=== PATIENT | male | born 1970 | race Caucasian/White ===

== ENCOUNTER 2018-03-13 16:10 | Outpatient (REF) | payer BC, SELFPAY ==
[2018-03-13 20:29] LABS: Anion Gap 6.3 mmol/L (3-11); BUN 12 mg/dL (7-18); CO2 31.7 mmol/L (21.0-32.0); CREATININE 0.89 mg/dL (0.70-1.30); Calcium 9.5 mg/dL (8.5-10.1); Chloride 101 mmol/L (98-107); Glucose 99 mg/dL (70-100); Potassium 4.2 mmol/L (3.5-5.1); Sodium 139 mmol/L (136-145)
[2018-03-13 21:41] LABS: Hemoglobin A1C 5.6 % (4.5-6.2)
== END 2018-03-13 16:30 ==
LOC: NCHCN 16:10
PROVIDERS: PCP Physician Assistant Medical; Visit Provider Physician Assistant Medical
DX: I10 Essential (primary) hypertension (principal)
CPT/HCPCS: 80048; 83036

== ENCOUNTER 2019-03-26 17:49 | Outpatient (REF) | payer BC, SELFPAY ==
[2019-03-26 21:54] LABS: Anion Gap 10.3 mmol/L (3-11); BUN 12 mg/dL (7-18); CO2 28.7 mmol/L (21.0-32.0); CREATININE 0.95 mg/dL (0.70-1.30); Calcium 9.3 mg/dL (8.5-10.1); Calculated LDL 73 mg/dL; Chloride 103 mmol/L (98-107); Cholesterol 115 mg/dL (50-200); Glucose 102 mg/dL (70-100); HDL Cholesterol 35 mg/dL (40-60); Potassium 3.8 mmol/L (3.5-5.1); Sodium 142 mmol/L (136-145); Triglyceride 36 mg/dL (30-150)
== END 2019-03-26 18:09 ==
LOC: NCHCO 17:49
PROVIDERS: PCP Physician Assistant Medical; Visit Provider Physician Assistant Medical
DX: I10 Essential (primary) hypertension (principal)
CPT/HCPCS: 80048; 80061

== ENCOUNTER 2019-06-25 21:49 | Outpatient (REF) | payer BC, SELFPAY ==
[2019-06-25 22:06] LABS: ALT 37 U/L (16-63); AST 36 U/L (15-37); Albumin 3.9 g/dL (3.4-5.0); Alkaline Phosphatase 81 U/L (46-116); Anion Gap 10.9 mmol/L (3-11); BUN 11 mg/dL (7-18); Bilirubin, Total 0.3 mg/dL (0.2-1.0); CO2 26.1 mmol/L (21.0-32.0); CREATININE 0.89 mg/dL (0.70-1.30); Calcium 8.7 mg/dL (8.5-10.1); Chloride 105 mmol/L (98-107); Glucose 97 mg/dL (74-106); Potassium 3.8 mmol/L (3.5-5.1); Sodium 142 mmol/L (136-145); Total Protein 6.6 g/dL (6.4-8.2)
== END 2019-06-25 22:09 ==
LOC: NCHCN 21:49
PROVIDERS: PCP Physician Assistant Medical; Visit Provider Physician Assistant Medical
DX: I10 Essential (primary) hypertension (principal)
CPT/HCPCS: 80053

== ENCOUNTER 2019-12-24 14:25 | Emergency (ER) | payer SELFPAY ==
[2019-12-24 14:32] VITALS: BP 137/88; PULSE 67; TEMP 36.7; O2SAT 98
--- NOTE | 2019-12-24 15:06 | W.ED.GENAD ---
Discharge Plan Disposition Patient Disposition: HOME Condition: Stable Discharge Details Chief Complaint: EyeProblem Clinical Impression: Subconjunctival hemorrhage of right eye Primary Care Provider: Timi Hendricks ED Provider: Yenni Borden Home Meds and New Rx's Prescriptions: No Action losartan 25 mg tablet 25 mg PO DAILY RF: 0 Discharge Instructions Instructions: Subconjunctival Hemorrhage (ED) Additional Instructions: Follow-up with [facility] eye care if needed in 1 to 2 weeks. Subconjunctival hemorrhages should resolve on their own within 1 to 2 weeks. Return to the ED or be seen sooner for any vision changes, increasing eye pain, or worsening drainage. Apply cold compresses you may need artificial tears to keep eye moist. Follow up with primary care provider in 3-5 days. Return to ED sooner if any worsening or concerns. Increase oral fluids. [address] [place] [address] ? 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 He had increased tearing. He denies having any foreign body sensation or scratching his eye or any eye trauma. He then noticed that he had some bleeding noted to the conjunctive of his eye. He has no visual changes, no blurry vision no headache no ear pain he is not on any blood thinners. He does have a history of high blood pressure and is on losartan. Blood pressure here is within normal limits 137/88. He has just increased tearing no serosanguineous drainage or signs of globe rupture at this time. Visual acuity within normal limits please see RN chart Patient instructed to follow-up with [facility] discuss strict return instructions, verbalized understanding. HPI General Mode of arrival: ambulatory. Date/Time Provider Initiated Documentation: 12/24/19 14:39. Limitations to Documentation: no limitations. Information obtained by: patient. 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 He had increased tearing. He denies having any foreign body sensation or scratching his eye or any eye trauma. He then noticed that he had some bleeding noted to the conjunctive of his eye. He has no visual changes, no blurry vision no headache no ear pain he is not on any blood thinners. He does have a history of high blood pressure and is on losartan. Blood pressure here is within normal limits 137/88. He has just increased tearing no serosanguineous drainage or signs of globe rupture at this time. Related Data Home Medications Medication Instructions Recorded Confirmed losartan 25 mg PO DAILY 12/24/19 12/24/19 Allergies Allergy/AdvReac Type Severity Reaction Status Date / Time No Known Allergies Allergy Unverified 12/24/19 14:35 General Stated Complaint: EyeProblem JORDIN: 4 Review of Systems Narrative: Constitutional: Negative for weight loss, alert and oriented, well groomed, normal body habitus, appears comfortable. HEENT: Denies trauma, headaches, blurry vision, nasal discharge, sore throat, trouble swallowing. Reports subconjunctival painless right-sided lateral hemorrhage. Chest: Denies chest pain, palpitations, irregular rhythm, hypertension. Neuro: Denies dizziness, blurry vision, weakness, syncope, headache or facial numbness. Hematologic: Denies easy bruising, intolerance to heat or cold, hair loss. [facility] Social History Smoking/Tobacco Use Status: Never Alcohol Intake: never Drug use: Never Substance use type: does not use Do you feel safe at home: Yes Do you feel safe in your relationship?: Yes Exam Narrative Exam Narrative: Constitutional: Alert and oriented x3. Appears stated age. Normal body habitus. Head: Normocephalic, no trauma. Eyes: Pupils PERRLA, Red reflex noted, EOM's intact. Eyelids symmetrical without lesions, discharge, or swelling. Does have mild conjunctival swelling to the right lateral eyeball, please see eye exam as noted below. ENT: Bilateral TM's WNL, External ear normal to inspection, no mastoid TTP, swelling, or erythema, Nasal turbinates WNL, no nasal discharge. Normal dentition, Posterior pharynx WNL, no exudate. Neurologic: Cranial nerves II-XII intact. Alert and oriented x 3. DTR's intact. Eyes Alignment and Position: alignment normal Periorbital: periorbital findings normal Eyelids: eyelids normal Conjunctivae: conjunctival abnormality right subconjunctival hemorrhage Pupils: PERRL, normal by confrontation and accommodation normal EOM: EOM intact bilaterally Direct ophthalmoscopy: normal light reflex Eyes/upper lids images: 1. Subconjunctival hemorrhage Course Vital Signs Vital signs: Vital Signs Temperature 36.7 C 12/24/19 14:32 Pulse 67 12/24/19 14:32 Blood Pressure 137/88 12/24/19 14:32 Pulse Oximetry 98 12/24/19 14:32 Temperature 36.7 C 12/24/19 14:32 Temperature Source Temporal Artery Scan 12/24/19 14:32 Pulse 67 12/24/19 14:32 Respiratory Effort Non-Labored 12/24/19 14:34 Blood Pressure 137/88 12/24/19 14:32 Blood Pressure Position Sitting 12/24/19 14:32 Pulse Oximetry 98 12/24/19 14:32 Oxygen Delivery Method Room Air 12/24/19 14:32 Oxygen Flow Rate 0 12/24/19 14:32
--- NOTE | 2019-12-25 10:02 | NUR.NOTE ---
Nursing Note: Patient called requesting a work note to return to work today. 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 Dr. Velarde did a handwritten work note. This was emailed through the fax machine to [email or web address]. Shraddha Singleton Cell # [phone].
== END 2019-12-24 15:08 | disposition home or self-care (01) ==
PROVIDERS: Emergency Provider Registered Nurse Emergency; PCP Physician Assistant Medical
DX: H11.31 Conjunctival hemorrhage, right eye (principal)
CPT/HCPCS: 99282; 99283

== ENCOUNTER 2020-06-23 19:18 | Outpatient (REF) | payer BC, SELFPAY ==
[2020-06-23 21:59] LABS: Hemoglobin A1C 5.5 % (<5.7)
[2020-06-23 22:03] LABS: ALT 40 U/L (16-63); AST 35 U/L (15-37); Albumin 4.3 g/dL (3.4-5.0); Alkaline Phosphatase 83 U/L (46-116); Anion Gap 10.4 mmol/L (3-11); BUN 12 mg/dL (7-18); Bilirubin, Total 0.5 mg/dL (0.2-1.0); CO2 25.6 mmol/L (21.0-32.0); Calcium 9.4 mg/dL (8.5-10.1); Calculated LDL 78 mg/dL (<100); Chloride 103 mmol/L (98-107); Cholesterol 129 mg/dL (<200); Glucose 92 mg/dL (74-106); HDL Cholesterol 44 mg/dL (40-60); Potassium 3.7 mmol/L (3.5-5.1); Sodium 139 mmol/L (136-145); Total Protein 7.1 g/dL (6.4-8.2); Triglyceride 37 mg/dL (<150)
== END 2020-06-23 19:19 | disposition home or self-care (01) ==
LOC: NCHCN 19:18
PROVIDERS: PCP Physician Assistant Medical; Visit Provider Physician Assistant Medical
DX: I10 Essential (primary) hypertension (principal); R73.03 Prediabetes
CPT/HCPCS: 80053; 80061; 83036

== ENCOUNTER 2022-07-12 15:54 | Outpatient (REF) | payer BC, SELFPAY ==
[2022-07-12 20:19] LABS: Anion Gap 10.8 mmol/L (3-11); BUN 14 mg/dL (7-18); CO2 25.2 mmol/L (21.0-32.0); CREATININE 0.9 mg/dL (0.70-1.30); Calcium 9.1 mg/dL (8.5-10.1); Calculated LDL 72 mg/dL (<100); Chloride 107 mmol/L (98-107); Cholesterol 129 mg/dL (<200); Estimated GFR 101.49 (mL/min/1.73m2); Glucose 90 mg/dL (74-106); HDL Cholesterol 48 mg/dL (40-60); Potassium 3.7 mmol/L (3.5-5.1); Sodium 143 mmol/L (136-145); Triglyceride 47 mg/dL (<150)
== END 2022-07-12 15:55 | disposition home or self-care (01) ==
LOC: NCHCN 15:54
PROVIDERS: PCP Physician Assistant Medical; Visit Provider Physician Assistant Medical
DX: I10 Essential (primary) hypertension (principal)
CPT/HCPCS: 80048; 80061

== ENCOUNTER 2023-05-29 05:03 | Outpatient (CLI) | payer OTHER, SELFPAY ==
--- OUTSIDE RECORDS SUMMARY | 2023-05-29 05:05 | XMS_ITS | Continuity of Care Document ---
Author Name Unknown Organization [facility] Address [address] [place] [id number] Care Team Providers Care Preflight Inspector Name Role Phone BEN FITZGERALD PA-C Primary Care Brandenrayo morfin Encounter [facility]TT[facility] FIN NBR [id number] Date(s): 04/19/23 - 04/19/[address] [id number] Encounter Diagnosis Pneumonia(Discharge Diagnosis) - 04/19/23 Discharge Disposition: Home or Self Care Attending Physician: Duncan Mendoza MD Admitting Physician: Duncan Mendoza MD Allergies, Adverse Reactions, Alerts No Known Allergies Medications Albuterol (Eqv-Proventil HFA) 90 mcg/inh inhalation aerosol INHALE 2 PUFFS BY MOUTH EVERY 4 TO 6 HOURS NEEDED Start Date: 04/19/23 Status: Ordered amoxicillin-clavulanate 875 mg-125 mg oral tablet 1 tab, Oral, every 12 hr, X 10 days, # 20 tab, 0 Refill(s), 04/29/23 6:00:00 AM [employer] Start Date: 04/19/23 Stop Date: 04/29/23 Status: Ordered doxycycline hyclate 100 mg oral tablet 100 mg = 1 tab, Oral, BID, X 10 days, # 20 tab, 0 Refill(s), 04/29/23 6:00:00 AM [employer] Start Date: 04/19/23 Stop Date: 04/29/23 Status: Ordered losartan 25 mg oral tablet 25 mg = 1 tab, Oral, Daily, # 30 tab, 0 Refill(s) Start Date: 04/19/23 Status: Ordered Mental Status 04/19/23 Eye Opening Response [place] Spontaneous ly Best Verbal Response [place] Oriented Best Motor Response [place] Obeys comman ds Olivia Coma Score 15 Results Laboratory List Name Date Respiratory Panel 2.1 ([employer]) 04/19/23 CBC w/ Diff 04/19/23 Comprehensive Metabolic Panel (CMP) 04/19 D-Dimer 04/19/23 Sedimentation Rate (ESR) 04/19/23 Troponin-I High Sensitivity 04/19/23 Automated Diff 04/19/23 Most recent to oldest [Reference Range]: 1 WBC [4.8-10.8 K/mcL] 5.0 K/mcL (04/19/23 5:08 AM) RBC [4.70-6.10 Million/mcL] 4.65 Million /mcL *LOW* (04/19/23 5:08 AM) Neutro Auto [42.2-75.2 %] 75.8 % *HI* (04/19/23 5:08 AM) Lymph Auto [20.5-51.1 %] 13.5 % *LOW* (04/19/23 5:08 AM) [place] Auto [1.7-9.3 %] 8.2 % (04/19/23 5:08 AM) Basophil Auto [0.0-0.8 %] 0.6 % (04/19/23 5:08 AM) BUN [7-25 mg/dL] 11 mg/dL (04/19/23 5:08 AM) Glucose Level [70-109 mg/dL] 252 mg/dL *HI* (04/19/23 5:08 AM) Potassium Level [3.5-5.1 mmol/L] 3.6 mmo l/L (04/19/23 5:08 AM) Baso Absolute [0.0-0.2 K/mcL] 0.0 K/mcL (04/19/23 5:08 AM) MCV [80.0-94.0 fL] 89.5 fL (04/19/23 5:08 AM) AST [13-39 IntlUnit/L] 17 IntlUnit/L (04/19/23 5:08 AM) ALT [7-52 IntlUnit/L] 21 IntlUnit/L (04/19/23 5:08 AM) MCHC [32.0-37.0 g/dL] 34.5 g/dL (04/19/23 5:08 AM) Osmolality [275-295 mOsm/kg] 280 mOsm/kg (04/19/23 5:08 AM) Sodium Level [136-145 mmol/L] 136 mmol/L (04/19/23 5:08 AM) Lymph Absolute [1.2-3.4 K/mcL] 0.7 K/mcL *LOW* (04/19/23 5:08 AM) Hct [42.0-52.0 %] 41.6 % *LOW* (04/19/23 5:08 AM) Calcium Level [8.6-10.3 mg/dL] 9.0 mg/dL (04/19/23 5:08 AM) [place] Absolute [0.1-0.6 K/mcL] 0.4 K/mcL (04/19/23 5:08 AM) Albumin Level [3.5-5.7 g/dL] 3.9 g/dL (04/19/23 5:08 AM) Protein Total [6.4-8.9 g/dL] 6.7 g/dL (04/19/23 5:08 AM) MCH [27.0-31.0 pg] 30.9 pg (04/19/23 5:08 AM) Neutro Absolute [1.4-6.5 K/mcL] 3.8 K/mc L (04/19/23 5:08 AM) Bilirubin Total [0.3-1.0 mg/dL] 0.8 mg/d L (04/19/23 5:08 AM) Hgb [14.0-18.0 g/dL] 14.4 g/dL (04/19/23 5:08 AM) Alk Phos [34-104 IntlUnit/L] 61 IntlUnit /L (04/19/23 5:08 AM) MPV [7.4-10.4 fL] 8.1 fL (04/19/23 5:08 AM) Platelets [130-400 K/mcL] 181 K/mcL (04/19/23 5:08 AM) CO2 [21-31 mmol/L] 23 mmol/L (04/19/23 5:08 AM) Eos Absolute [0.0-0.2 K/mcL] 0.1 K/mcL (04/19/23 5:08 AM) Chloride Level [98-107 mmol/L] 103 mmol/ L (04/19/23 5:08 AM) RDW-CV [11.5-14.5 %] 13.9 % (04/19/23 5:08 AM) Adenovirus RespP-BFire [Not Detected] No t Detected (04/19/23 5:43 AM) Bordetella parapertussis RespP-BFire [No t Detected] Not Detected (04/19/23 5:43 AM) Bordetella pertussis RespP-BFire [Not De tected] Not Detected (04/19/23 5:43 AM) Chlamydophila pneumoniae RespP-BFire [No t Detected] Not Detected (04/19/23 5:43 AM) Coronavirus 229E (Not COVID-19) RP-BFire [Not Detected] Not Detected (04/19/23 5:43 AM) Coronavirus HKU1 (Not COVID-19) RP-BFire [Not Detected] Not Detected (04/19/23 5:43 AM) Coronavirus NL63 (Not COVID-19) RP-BFire [Not Detected] Not Detected (04/19/23 5:43 AM) Coronavirus OC43 (Not COVID-19) RP-BFire [Not Detected] Not Detected (04/19/23 5:43 AM) Human Metapneumonovirus RespP-BFire [Not Detected] Not Detected (04/19/23 5:43 AM) Human Rhinovirus/Enterovirus RespP-BFir [Not Detected] Not Detected (04/19/23 5:43 AM) Influenza A RespP-BFire [Not Detected] N ot Detected (04/19/23 5:43 AM) Influenza B RespP-BFire [Not Detected] N ot Detected (04/19/23 5:43 AM) Mycomplasma pneumoniae RespP-BFire [Not Detected] Not Detected (04/19/23 5:43 AM) Parainfluenza Virus 1 RespP-BFire [Not D etected] Not Detected (04/19/23 5:43 AM) Parainfluenza Virus 2 RespP-BFire [Not D etected] Not Detected (04/19/23 5:43 AM) Parainfluenza Virus 3 RespP-BFire [Not D etected] Not Detected (04/19/23 5:43 AM) Parainfluenza Virus 4 RespP-BFire [Not D etected] Not Detected (04/19/23 5:43 AM) Respiratory Syncytial Virus RespP-BFire [Not Detected] Not Detected (04/19/23 5:43 AM) A/G Ratio [1.0-2.5 g/dL] 1.4 g/dL (04/19/23 5:08 AM) BUN/Creat Ratio [8.0-20.0] 11.0 (04/19/23 5:08 AM) Globulin [2.3-3.5 g/dL] 2.8 g/dL (04/19/23 5:08 AM) Creatinine Level [0.70-1.30 mg/dL] 1.00 mg/dL (04/19/23 5:08 AM) SARS-CoV-2 (COVID-19) RP-BFire [Not Dete cted] Not Detected (04/19/23 5:43 AM) 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 Unknown *NA* (04/19/23 5:43 AM) Symptomatic as defined by CDC? Unknown *NA* (04/19/23 5:43 AM) Hospitalized due to COVID-19? Unknown *NA* (04/19/23 5:43 AM) In ICU? Unknown *NA* (04/19/23 5:43 AM) Group care resident? Unknown *NA* (04/19/23 5:43 AM) status? Unknown *NA* (04/19/23 5:43 AM) Troponin-I HS [<=20 ng/L] 2 ng/L (04/19/23 5:08 AM) Anion Gap [3.0-12.0] 10.0 (04/19/23 5:08 AM) D Dimer, (Quant.) [<=500 ng/mL] 400 ng/m L 1 (04/19/23 5:08 AM) Eos, Auto [0.00-3.00 %] 1.90 % (04/19/23 5:08 AM) eGFR CKD-EPI [>=60 mL/min/1.73 m2] 89 mL /min/1.73 m2 (04/19/23 5:08 AM) ESR, Westergren [0-15 mm/hr] 53 mm/hr *HI* (04/19/23 5:08 AM) 1Interpretive Data: A normal D-dimer result (< or =500 ng/mL FEU) has a negative predicitive value of approximately 95% for the exclusion of acute embolism (PE) or deep vein thrombosis when there is low or moderate pretest PE probability. Radiology Reports * Exam Date Time Procedure Performing Provider Status 04/19/23 6:[address] Chest w/o Contrast Eva Whitman Notes: (CT Chest w/o Contrast) Reason For Exam: cp, pneumonia CT Chest w/o Contrast PROCEDURE INFORMATION: Exam: CT Chest Without Contrast; Diagnostic Exam date and time: 04/19/2023 6:10 AM Age: 53 years old Clinical indication: Dyspnea; Additional info: Cp, pneumonia TECHNIQUE: Imaging protocol: Diagnostic computed tomography of the chest without contrast. Radiation optimization: All CT scans at this facility use at least one of these dose optimization techniques: automated exposure control; mA and/or kV adjustment per patient size (includes targeted exams where dose is matched to clinical indication); or iterative reconstruction. REPORTING DATA: Count of CT and Cardiac NM exams in prior 12 months: This patient has received 0 known CTs and 0 known cardiac nuclear medicine studies in the 12 months prior to the current study. COMPARISON: CT ANGIO CHEST 02/10/2021 7:52 PM FINDINGS: Lungs: There is consolidation predominantly within lingula, extending slightly into left lower lobe. There are associated mild air bronchograms. There is mild paraseptal emphysema within the left upper lobe. Pleural spaces: Unremarkable. No pneumothorax. No pleural effusion. Heart: Unremarkable. No cardiomegaly. No pericardial effusion. Lymph nodes: Unremarkable. No enlarged lymph nodes. Vasculature: Unremarkable. No aortic aneurysm. Bones/joints: There is mild compression deformity of T9 vertebral body appearing chronic. There are anterior bridging osteophytes within thoracic spine. Soft tissues: Unremarkable. IMPRESSION: Left-sided pneumonia. COMMENTS: In the absence of a history or active diagnosis of lung cancer, it is recommended that this patient with emphysema be evaluated for enrollment in a low dose CT lung cancer screening program. THIS DOCUMENT HAS BEEN ELECTRONICALLY SIGNED BY LETICIA CORDOVA MD on 04/19/2023 06:50 AM Final Signed by: Leticia Cordova MD Signed (Electronic Signature): 04/19/2023 6:[address] Chest w/o Contrast ADDENDUM ADDENDUM: There is minimal coronary artery calcification compatible with atherosclerotic disease. THIS DOCUMENT HAS BEEN ELECTRONICALLY SIGNED BY LETICIA CORDOVA MD on 04/19/2023 06:52 AM Final Signed by: Leticia Cordova MD Signed (Electronic Signature): 04/19/2023 6:52 am * Exam Date Time Procedure Performing Provider Status 04/19/23 5:21 AM XR Chest 1 View Kaitlin Whitman; Auth (Ve rified) Notes: (XR Chest 1 View) Reason For Exam: cp XR Chest 1 View PROCEDURE INFORMATION: Exam: XR Chest Exam date and time: 04/19/2023 5:18 AM Age: 53 years old Clinical indication: Pain; On breathing; Additional info: Cp TECHNIQUE: Imaging protocol: Radiologic exam of the chest. Views: 1 view. COMPARISON: CT ANGIO CHEST 02/10/2021 7:52 PM FINDINGS: Lungs: There are low lung volumes bilaterally. There is ill-defined opacity throughout left lung base. Pleural spaces: Unremarkable. No pleural effusion. No pneumothorax. Heart/Mediastinum: Unremarkable. No cardiomegaly. Bones/joints: Unremarkable. IMPRESSION: Left basilar opacity compatible with pneumonia THIS DOCUMENT HAS BEEN ELECTRONICALLY SIGNED BY LETICIA CORDOVA MD on 04/19/2023 06:22 AM Final Signed by: Leticia Cordova MD Signed (Electronic Signature): 04/19/2023 6:22 am Vital Signs Most recent to oldest [Reference Range]: 1 2 3 Temperature Temporal Artery [36-38 Deg C] 36.8 Deg C (04/19/23 4:52 AM) Peripheral Pulse Rate [60-100 bpm] 76 bpm (04/19/23 6:00 AM) 82 bpm (04/19/23 5:30 AM) 91 bpm (04/19/23 4:52 AM) Heart Rate Monitored [60-100 bpm] 87 bpm (04/19/23 6:00 AM) 83 bpm (04/19/23 5:30 AM) Respiratory Rate [12-24 br/min] 20 br/min (04/19/23 4:52 AM) Blood Pressure [90-140/60-90 mmHg] 123/81mmHg (04/19/23 6:00 AM) 123/81mmHg (04/19/23 5:30 AM) 131/85mmHg (04/19/23 4:52 AM) Mean Arterial Pressure, Cuff [70-110 mmHg] 95 mmHg (04/19/23 6:00 AM) 95 mmHg (04/19/23 5:30 AM) 100 mmHg (04/19/23:52 AM) Mean Arterial Pressure Cuff 95 mmHg (04/19/23 6:00 AM) 94 mmHg (04/19/23 5:30 AM) Weight 110 kg (04/19/23:52 AM) Weight Dosing 110.000 kg (04/19/23:52 AM) Height 170 cm (04/19/23:52 AM) Body Mass Index 38.06 kg/m2 (04/19/23:52 AM) Social History Social History Type Response Tobacco Never tobacco user T obacco Use:. Sex Hospital Discharge Instructions Patient Education 04/19/2023 06:00:09 Community-Acquired Pneumonia, Adult Community-Acquired Pneumonia, Adult Pneumonia is a lung infection that causes inflammation and the buildup of mucus and fluids in the lungs. This may cause coughing and difficulty breathing. Community-acquired pneumonia is pneumonia that develops in people who are not, and have not recently been, in a hospital or other health care facility. Usually, pneumonia develops as a result of an illness that is caused by a virus, such as the commoncold and the flu (influenza). It can also be caused by bacteria or fungi. While the common cold andinfluenza can pass from person to person (are contagious), pneumonia itself is not considered contagious. What are the causes? This condition may be caused by: ??? Viruses. ??? Bacteria. ??? Fungi, such as molds or mushrooms. What increases the risk? The following factors may make you more likely to develop this condition: ??? Having certain medical conditions, such as: ??? A long-term (chronic) disease, which may include chronic obstructive pulmonary disease (COPD), asthma, heart failure, cystic fibrosis, diabetes, kidney disease, sickle cell disease, and human immunodeficiency virus (HIV). ??? A condition that increases the risk of breathing in (aspirating) mucus and other fluids from your mouth and nose. ??? A weakened body defense system (immune system). ??? Having had your spleen removed (splenectomy). The spleen is the organ that helps fight germs and infections. ??? Not cleaning your teeth and gums well (poor dental hygiene). ??? Using tobacco products. ??? Traveling to places where germs that cause pneumonia are present. ??? Being near certain animals, or animal habitats, that have germs that cause pneumonia. ??? Being older than 65 years of age. What are the signs or symptoms? Symptoms of this condition include: ??? A dry cough or a wet (productive) cough. ??? A fever. ??? Sweating or chills. ??? Chest pain, especially when breathing deeply or coughing. ??? Fast breathing, difficulty breathing, or shortness of breath. ??? Tiredness (fatigue). ??? Muscle aches. How is this diagnosed? This condition may be diagnosed based on your medical history or a physical exam. You may also havetests, including: ??? Chest X-rays. ??? Tests of the level of oxygen and other gases in your blood. ??? Tests of: ??? Your blood. ??? Mucus from your lungs (sputum). ??? Fluid around your lungs (pleural fluid). ??? Your urine. If your pneumonia is severe, other tests may be done to learn more about the cause. How is this treated? Treatment for this condition depends on many factors, such as the cause of your pneumonia, your medicines, and other medical conditions that you have. For most adults, pneumonia may be treated at home. In some cases, treatment must happen in a hospital and may include: ??? Medicines that are given by mouth (orally) or through an IV, including: ??? Antibiotic medicines, if bacteria caused the pneumonia. ??? Medicines that kill viruses (antiviral medicines), if a virus caused the pneumonia. ??? Oxygen therapy. Severe pneumonia, although rare, may require the following treatments: ??? Mechanical ventilation.This procedure uses a machine to help you breathe if you cannot breathe well on your own or maintain a safe level of blood oxygen. ??? Thoracentesis. This procedure removes any buildup of pleural fluid to help with breathing. Follow these instructions at home: Medicines ??? Take [id number]-[id number] and prescription medicines only as told by your health care provider. ??? Take cough medicine only if you have trouble sleeping. Cough medicine can prevent your body from removing mucus from your lungs. ??? If you were prescribed an antibiotic medicine, take it as told by your health care provider. Donot stop taking the antibiotic even if you start to feel better. Lifestyle ??? Do not drink alcohol. ??? Do not use any products that contain nicotine or tobacco, such as cigarettes, e-cigarettes, andchewing tobacco. If you need help quitting, ask your health care provider. ??? Eat a healthy diet. This includes plenty of vegetables, fruits, whole grains, low-fat dairy products, and lean protein. General instructions ??? Rest a lot and get at least 8 hours of sleep each night. ??? Sleep in a partly upright position at night. Place a few pillows under your head or sleep in a reclining chair. ??? Return to your normal activities as told by your health care provider. Ask your health care provider what activities are safe for you. ??? Drink enough fluid to keep your urine pale yellow. This helps to thin the mucus in your lungs. ??? If your throat is sore, gargle with a salt???water mixture 3???4 times a day or as needed. To make a salt???water mixture, completely dissolve ?1 tsp (3???6 g) of salt in 1 cup (237 mL) of warm water. ??? Keep all follow-up visits as told by your health care provider. This is important. How is this prevented? You can lower your risk of developing community-acquired pneumonia by: ??? Getting the pneumonia vaccine. There are different types and schedules of pneumonia vaccines. Ask your health care provider which option is best for you. Consider getting the pneumonia vaccine if: ??? You are older than 65 years of age. ??? You are 19???65 years of age and are receiving cancer treatment, have chronic lung disease, or have other medical conditions that affect your immune system. Ask your health care provider if this applies to you. ??? Getting your influenza vaccine every year. Ask your health care provider which type of vaccine is best for you. ??? Getting regular dental checkups. ??? Washing your hands often with soap and water for at least 20 seconds. If soap and water are notavailable, use hand servicenow administrator. Contact a health care provider if you have: ??? A fever. ??? Trouble sleeping because you cannot control your cough with cough medicine. Get help right away if: ??? Your shortness of breath becomes worse. ??? Your chest pain increases. ??? Your sickness becomes worse, especially if you are an older adult or have a weak immune system. ??? You cough up blood. These symptoms may represent a serious problem that is an emergency. Do not wait to see if the symptoms will go away. Get medical help right away. Call your local emergency services (911 in the [place] Do not drive yourself to the hospital. Summary ??? Pneumonia is an infection of the lungs. ??? Community-acquired pneumonia develops in people who have not been in the hospital. It can be caused by bacteria, viruses, or fungi. ??? This condition may be treated with antibiotics or antiviral medicines. ??? Severe pneumonia may require a hospital stay and treatment to help with breathing. This information is not intended to replace advice given to you by your health care provider. Make sure you discuss any questions you have with your health care provider. Document Revised: 02/10/2020 Document Reviewed: 02/10/2020 [facility] Patient Education ?? 2022 [employer]. Physician Emergency department Note * Duncan Mendoza MD: PERFORM Event Display: ED Note Physician Authored Date: [id number] ALAN KENNEDY :1970 Age:53 years Sex:Male Visit Date:04/19/2023 Primary Care Physician: BEN FITZGERALD PA-C Basic Information Time Seen: Duncan Mendoza MD / 04/19/2023 04:55 Chief Complaint pt has been having sob for 2 days however chest pain started at midnight last night up into left shoulder. History Of Present Illness: Several days of left-sided chest discomfort??worse with deep breathing??patient has a history of??frequent pneumonias/bronchitis (was seen in 2020??had what look like COVID-pneumonia then on CT scan),??but most of his prior diagnoses of this have been??empiric??(no imaging). ??Non-smoker. ??Works as a [employer].?? Denies any leg swelling, pain,??prolonged travel or immobilization. ??No past history of DVT, no significant cardiac history.?? Patient has had some mucus, but no significant mucopurulent sputum or blood. Review of Systems: Review of Systems: Constitutional: [No fevers] Eye: [No acute visual complaints, no eye discharge] ENT: [No ear pain, nasal congestion, sore throat] Respiratory: [Mild shortness of breath,??+ cough]??slight sputum Cardiovascular: [+left sided??Chest pain] Gastrointestinal: [No nausea, vomiting, or diarrhea. No rectal bleeding or melena] Genitourinary: [No dysuria; no hematuria] Musculoskeletal: [No acute back pain, neck pain, joint pain,] Integumentary: [No rashes] Neurologic: [No focal complaints.??No LOC] ?? Physical Exam: General: [Alert, well nourished, no acute distress].?Not hypoxic, not febrile, heart rate in the80s Eye: [PERRL, EOMI, normal conjunctiva]. HENT: [Normocephalic, normal hearing, moist oral mucosa, no scleral icterus, no nasal discharge].?? Neck: [Ranging neck, normal inspection].?? Lungs: [Clear, non-labored respiration, no tachypnea].?Crackles/rhonchi left-sided??midline Heart: [Normal rate, regular rhythm, no murmurs]. Abdomen: [Soft, non-tender, non-distended].?? Musculoskeletal: [Normal range of motion and strength, no tenderness or swelling]. Skin: [Skin is warm, no rashes]. Neurologic: [Awake, alert and oriented X4, normal tone, moving all extremities with good strength].[Ambulation intact]. Psychiatric: [Cooperative, appropriate mood and affect]. Physical Exam Vitals & Measurements T:??36.8?C ??(Temporal Artery)?? HR:??76??(Peripheral)?? HR:??87??(Monitored)?? RR:??20?? BP:??123/81?? SpO2:??98%?? HT:??170??cm?? WT:??110??kg?? BMI:??38.06?? Pain Score:??5?? O2 Therapy:??Room air?? Procedure No Qualifying Data Assessment/Plan 1.??Pneumonia??J18.9 Ordered: amoxicillin-clavulanate 875 mg-125 mg oral tablet, 1 tab, Oral, every 12 hr, X 10 days, # 20 tab, 0Refill(s), 04/29/23 7:00:00 EST doxycycline hyclate 100 mg oral tablet, 100 mg = 1 tab, Oral, BID, X 10 days, # 20 tab, 0 Refill(s), 04/29/23 7:00:00 EST ?? Orders: Discharge Patient, 04/19/23 6:55:00 EST, Home Independently Single view chest x-ray suggests left lower lobe infiltrate.?? EKG sinus rhythm with LVH.?? Labs checked, white count 5.0, normal hemoglobin hematocrit,??slight left shift 75% neutrophils, slightly low lymphocytes 13.5.,??sed rate elevated at 55.?? Mild hyperglycemia. ??ESR 53, dimer 400??(negative),??troponin high- sensitivity 2.?? Patient ambulated and did not desaturate. ??CT scan of chest without contrast (dimer low, day??not feel patient??warranted a vascular study)??shows??left lower lobe??pneumonia.?? Will treat with Augmentin and doxycycline; discharge with follow-up with PMD, monitor oxygen,??return if anything worsens, cannot keep down medications,??severe chest pain etc. Patient Education Community-Acquired Pneumonia, Adult Medication Reconciliation New Prescription amoxicillin-clavulanate (amoxicillin-clavulanate 875 mg-125 mg oral tablet)1 tab Oral (given by mouth) every 12 hours for 10 Days. Refills: 0. ?? doxycycline (doxycycline hyclate 100 mg oral tablet)1 tab Oral (given by mouth) 2 times a day for 10 Days. Refills: 0. ?? Unchanged albuterol (Albuterol (Eqv-Proventil HFA) 90 mcg/inh inhalation aerosol)INHALE 2 PUFFS BY MOUTH EVERY 4 TO 6 HOURS NEEDED. ?? losartan (losartan 25 mg oral tablet)1 tab Oral (given by mouth) every day. Problem List/Past Medical History Ongoing No qualifying data Historical No qualifying data Medication Administration Given amoxicillin-clavulanate 875 mg-125 mg oral tablet, 1 tab, Oral doxycycline, 100 mg, Oral ipratropium-albuterol 0.5 mg-2.5 mg/3 mL inhalation solution, 3 mL, Nebulized Inhalation Allergies No Known Allergies Social History Electronic Cigarette/Vaping Electronic Cigarette Use: Never. Tobacco Never tobacco user Tobacco Use:. Diagnostic Results CT Chest w/o Contrast 04/19/2023 06:52 EST XR Chest 1 View 04/19/2023 06:[address] Chest w/o Contrast ?? 04/19/23 06:10:33 PROCEDURE INFORMATION: Exam: CT Chest Without Contrast; Diagnostic Exam date and time: 04/19/2023 6:10 AM Age: 53 years old Clinical indication: Dyspnea; Additional info: Cp, pneumonia ?? TECHNIQUE: Imaging protocol: Diagnostic computed tomography of the chest without contrast. Radiation optimization: All CT scans at this facility use at least one of these dose optimization techniques: automated exposure control; mA and/or kV adjustment per patient size (includes targeted exams where dose is matched to clinical indication); or iterative reconstruction. ?? REPORTING DATA: Count of CT and Cardiac NM exams in prior 12 months: This patient has received 0 known CTs and 0 known cardiac nuclear medicine studies in the 12 months prior to the current study. ?? COMPARISON: CT ANGIO CHEST 02/10/2021 7:52 PM ?? FINDINGS: Lungs: There is consolidation predominantly within lingula, extending slightly into left lower lobe. There are associated mild air bronchograms. There is mild paraseptal emphysema within the left upper lobe. Pleural spaces: Unremarkable. No pneumothorax. No pleural effusion. Heart: Unremarkable. No cardiomegaly. No pericardial effusion. Lymph nodes: Unremarkable. No enlarged lymph nodes. Vasculature: Unremarkable. No aortic aneurysm. ?? Bones/joints: There is mild compression deformity of T9 vertebral body appearing chronic. There are anterior bridging osteophytes within thoracic spine. Soft tissues: Unremarkable. ?? IMPRESSION: Left-sided pneumonia. ? COMMENTS: In the absence of a history or active diagnosis of lung cancer, it is recommended that this patient with emphysema be evaluated for enrollment in a low dose CT lung cancer screening program. ? THIS DOCUMENT HAS BEEN ELECTRONICALLY SIGNED BY LETICIA CORDOVA MD on 04/19/2023 06:50 AM ?? Signed By: Leticia Cordova MD ?? 04/19/23 06:10:33 ADDENDUM ADDENDUM: There is minimal coronary artery calcification compatible with atherosclerotic disease. ?? THIS DOCUMENT HAS BEEN ELECTRONICALLY SIGNED BY LETICIA CORDOVA MD on 04/19/2023 06:52 AM ?? Signed By: Leticia Cordova MD ?? XR Chest 1 View ?? 04/19/23 05:18:23 PROCEDURE INFORMATION: Exam: XR Chest Exam date and time: 04/19/2023 5:18 AM Age: 53 years old Clinical indication: Pain; On breathing; Additional info: Cp ?? TECHNIQUE: Imaging protocol: Radiologic exam of the chest. Views: 1 view. ?? COMPARISON: CT ANGIO CHEST 02/10/2021 7:52 PM ?? FINDINGS: Lungs: There are low lung volumes bilaterally. There is ill-defined opacity throughout left lung base. Pleural spaces: Unremarkable. No pleural effusion. No pneumothorax. Heart/Mediastinum: Unremarkable. No cardiomegaly. Bones/joints: Unremarkable. ?? IMPRESSION: Left basilar opacity compatible with pneumonia ? THIS DOCUMENT HAS BEEN ELECTRONICALLY SIGNED BY LETICIA CORDOVA MD on 04/19/2023 06:22 AM ?? Signed By: Leticia Cordova MD Lab Results CBC and Differential?? LATEST RESULTS?? WBC?? 04/19/23 05:08?? 5.0?? RBC?? 04/19/23 05:08?? 4.65 ??Low?? Hgb?? 04/19/23 05:08?? 14.4?? Hct?? 04/19/23 05:08?? 41.6 ??Low?? MCV?? 04/19/23 05:08?? 89.5?? MCH?? 04/19/23 05:08?? 30.9?? MCHC?? 04/19/23 05:08?? 34.5?? RDW-CV?? 04/19/23 05:08?? 13.9?? Platelets?? 04/19/23 05:08?? 181?? MPV?? 04/19/23 05:08?? 8.1?? Neutro Auto?? 04/19/23 05:08?? 75.8 ??High?? Lymph Auto?? 04/19/23 05:08?? 13.5 ??Low?? [place] Auto?? 04/19/23 05:08?? 8.2?? Eos, Auto?? 04/19/23 05:08?? 1.90?? Basophil Auto?? 04/19/23 05:08?? 0.6?? Neutro Absolute?? 04/19/23 05:08?? 3.8?? Lymph Absolute?? 04/19/23 05:08?? 0.7 ??Low?? [place] Absolute?? 04/19/23 05:08?? 0.4?? Eos Absolute?? 04/19/23 05:08?? 0.1?? Baso Absolute?? 04/19/23 05:08?? 0.0? Miscellaneous Hematology?? LATEST RESULTS?? ESR, Westergren?? 04/19/23 05:08?? 53 ??High? Coagulation?? LATEST RESULTS?? D Dimer, (Quant.)?? 04/19/23 05:08?? 400? Routine Chemistry?? LATEST RESULTS?? Sodium Level?? 04/19/23 05:08?? 136?? Potassium Level?? 04/19/23 05:08?? 3.6?? Chloride Level?? 04/19/23 05:08?? 103?? CO2?? 04/19/23 05:08?? 23?? Alk Phos?? 04/19/23 05:08?? 61?? AST?? 04/19/23 05:08?? 17?? ALT?? 04/19/23 05:08?? 21?? BUN?? 04/19/23 05:08?? 11?? Glucose Level?? 04/19/23 05:08?? 252 ??High?? Creatinine Level?? 04/19/23 05:08?? 1.00?? BUN/Creat Ratio?? 04/19/23 05:08?? 11.0?? eGFR CKD-EPI?? 04/19/23 05:08?? 89?? Calcium Level?? 04/19/23 05:08?? 9.0?? Protein Total?? 04/19/23 05:08?? 6.7?? Albumin Level?? 04/19/23 05:08?? 3.9?? Globulin?? 04/19/23 05:08?? 2.8?? A/G Ratio?? 04/19/23 05:08?? 1.4?? Bilirubin Total?? 04/19/23 05:08?? 0.8?? Anion Gap?? 04/19/23 05:08?? 10.0?? Osmolality?? 04/19/23 05:08?? 280? Cardiac Isoenzymes?? LATEST RESULTS?? Troponin-I HS?? 04/19/23 05:08?? 2? Infectious Disease?? LATEST RESULTS?? Adenovirus RespP-BFire?? 04/19/23 05:43?? Not Detected?? Bordetella parapertussis RespP-BFire?? 04/19/23 05:43?? Not Detected?? Bordetella pertussis RespP-BFire?? 04/19/23 05:43?? Not Detected?? Chlamydophila pneumoniae RespP-BFire?? 04/19/23 05:43?? Not Detected?? Coronavirus 229E (Not COVID-19) RP-BFire?? 04/19/23 05:43?? Not Detected?? Coronavirus HKU1 (Not COVID-19) RP-BFire?? 04/19/23 05:43?? Not Detected?? Coronavirus NL63 (Not COVID-19) RP-BFire?? 04/19/23 05:43?? Not Detected?? Coronavirus OC43 (Not COVID-19) RP-BFire?? 04/19/23 05:43?? Not Detected?? SARS-CoV-2 (COVID-19) RP-BFire?? 04/19/23 05:43?? Not Detected?? Human Metapneumonovirus RespP-BFire?? 04/19/23 05:43?? Not Detected?? Human Rhinovirus/Enterovirus RespP-BFir?? 04/19/23 05:43?? Not Detected?? Influenza A RespP-BFire?? 04/19/23 05:43?? Not Detected?? Influenza B RespP-BFire?? 04/19/23 05:43?? Not Detected?? Mycomplasma pneumoniae RespP-BFire?? 04/19/23 05:43?? Not Detected?? Parainfluenza Virus 1 RespP-BFire?? 04/19/23 05:43?? Not Detected?? Parainfluenza Virus 2 RespP-BFire?? 04/19/23 05:43?? Not Detected?? Parainfluenza Virus 3 RespP-BFire?? 04/19/23 05:43?? Not Detected?? Parainfluenza Virus 4 RespP-BFire?? 04/19/23 05:43?? Not Detected?? Respiratory Syncytial Virus RespP-BFire?? 04/19/23 05:43?? Not Detected?? 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 Unknown?? Symptomatic as defined by [facility]??? 04/19/23 05:43?? Unknown?? Hospitalized due to COVID-19??? 04/19/23 05:43?? Unknown?? In ICU??? 04/19/23 05:43?? Unknown?? Group care resident??? 04/19/23 05:43?? Unknown?? status??? 04/19/23 05:43?? Unknown? Electronically Signed on 04/19/23 07:09 AM Duncan Mendoza MD Emergency department Discharge instructions * Duncan Mendoza MD: PERFORM Event Display: ED Discharge Information Authored Date: [id number] ALAN KENNEDY :1970 Age:53 years Sex:Male Visit Date:04/19/2023 Primary Care Physician: AMILCAR JOSE, BEN ESCALONA Discharge Instructions We would like to thank you for allowing us to assist you with your healthcare needs. The following includes patient education materials and information regarding your injury/illness. Diagnosis from Today's Visit Pneumonia Discharge Vitals Temperature??(Temporal Artery) 98.2 ??F (36.8 ??C) Heart Rate??(Peripheral) 76 Heart Rate??(Monitored) 87 Respiratory Rate?? 20 Blood Pressure?? 123/81?? Height?? 66.93 in (170 cm) Weight?? 242.55 lb (110 kg) BMI?? 38.06 Allergies No Known Allergies What to Do Next Instructions from Your Care Team Take Tylenol and/or Motrin for discomfort as necessary (1 g of Tylenol up to 4 times a day,??600 and Motrin up to 4 times a day).?? Take??Augmentin??twice a day for 10 days, doxycycline twice a day for 10 days.?? Monitor your oxygen at home.?? Return to emergency if you have high fevers,??oxygen saturations below 90%,??worsening trouble breathing,??inability to take medications due to nausea or vomiting,??or anything else acutely worsens. You were treated today on an emergency basis; it may be beth to contact your primary care provider to notify them of your visit today. You may have been referred to your regular doctor or a specialist, please follow up as instructed. If your condition worsens or you can't get in to see the doctor, contact the Emergency Department. Medications What How Much When Why Instructions Next Dose New amoxicillin-clavulanate (amoxicillin-clavulanate 875 mg-125 mg oral tablet) 1 tab Oral (given by mouth) Every 12 hours Pneumonia Duration: 10 Days Printed Prescription New doxycycline (doxycycline hyclate 100 mg oral tablet) 1 tab Oral (given by mouth) 2 times a day Pneumonia Duration: 10 Days Printed Prescription Unchanged albuterol (Albuterol (Eqv-Proventil HFA) 90 mcg/ inh inhalation aerosol) INHALE 2 PUFFS BY MOUTH EVERY 4 TO 6 HOURS NEEDED ?? Unchanged losartan (losartan 25 mg oral tablet) 1 tab Oral (given by mouth) Every day Education Materials Community-Acquired Pneumonia, Adult Pneumonia is a lung infection that causes inflammation and the buildup of mucus and fluids in the lungs. This may cause coughing and difficulty breathing. Community-acquired pneumonia is pneumonia that develops in people who are not, and have not recently been, in a hospital or other health care facility. Usually, pneumonia develops as a result of an illness that is caused by a virus, such as the commoncold and the flu (influenza). It can also be caused by bacteria or fungi. While the common cold andinfluenza can pass from person to person (are contagious), pneumonia itself is not considered contagious. What are the causes? This condition may be caused by: ? Viruses. ? Bacteria. ? Fungi, such as molds or mushrooms. What increases the risk? The following factors may make you more likely to develop this condition: ? Having certain medical conditions, such as: ? A long-term (chronic) disease, which may include chronic obstructive pulmonary disease (COPD), asthma, heart failure, cystic fibrosis, diabetes, kidney disease, sickle cell disease, and human immunodeficiency virus (HIV). ? A condition that increases the risk of breathing in (aspirating) mucus and other fluids from your mouth and nose. ? A weakened body defense system (immune system). ? Having had your spleen removed (splenectomy). The spleen is the organ that helps fight germs and infections. ? Not cleaning your teeth and gums well (poor dental hygiene). ? Using tobacco products. ? Traveling to places where germs that cause pneumonia are present. ? Being near certain animals, or animal habitats, that have germs that cause pneumonia. ? Being older than 65 years of age. What are the signs or symptoms? Symptoms of this condition include: ? A dry cough or a wet (productive) cough. ? A fever. ? Sweating or chills. ? Chest pain, especially when breathing deeply or coughing. ? Fast breathing, difficulty breathing, or shortness of breath. ? Tiredness (fatigue). ? Muscle aches. How is this diagnosed? This condition may be diagnosed based on your medical history or a physical exam. You may also havetests, including: ? Chest X-rays. ? Tests of the level of oxygen and other gases in your blood. ? Tests of: ? Your blood. ? Mucus from your lungs (sputum). ? Fluid around your lungs (pleural fluid). ? Your urine. If your pneumonia is severe, other tests may be done to learn more about the cause. How is this treated? Treatment for this condition depends on many factors, such as the cause of your pneumonia, your medicines, and other medical conditions that you have. For most adults, pneumonia may be treated at home. In some cases, treatment must happen in a hospital and may include: ? Medicines that are given by mouth (orally) or through an IV, including: ? Antibiotic medicines, if bacteria caused the pneumonia. ? Medicines that kill viruses (antiviral medicines), if a virus caused the pneumonia. ? Oxygen therapy. Severe pneumonia, although rare, may require the following treatments: ? Mechanical ventilation.This procedure uses a machine to help you breathe if you cannot breathe wellon your own or maintain a safe level of blood oxygen. ? Thoracentesis. This procedure removes any buildup of pleural fluid to help with breathing. Follow these instructions at home: Medicines ? Take unry-cat-mjivrmm and prescription medicines only as told by your health care provider. ? Take cough medicine only if you have trouble sleeping. Cough medicine can prevent your body from removing mucus from your lungs. ? If you were prescribed an antibiotic medicine, take it as told by your health care provider. Do notstop taking the antibiotic even if you start to feel better. Lifestyle ? Do not drink alcohol. ? Do not use any products that contain nicotine or tobacco, such as cigarettes, e- cigarettes, and chewing tobacco. If you need help quitting, ask your health care provider. ? Eat a healthy diet. This includes plenty of vegetables, fruits, whole grains, low-fat dairy products, and lean protein. General instructions ? Rest a lot and get at least 8 hours of sleep each night. ? Sleep in a partly upright position at night. Place a few pillows under your head or sleep in a reclining chair. ? Return to your normal activities as told by your health care provider. Ask your health care provider what activities are safe for you. ? Drink enough fluid to keep your urine pale yellow. This helps to thin the mucus in your lungs. ? If your throat is sore, gargle with a salt???water mixture 3???4 times a day or as needed. To make a salt???water mixture, completely dissolve ?1 tsp (3???6 g) of salt in 1 cup (237 mL) of warm water. ? Keep all follow-up visits as told by your health care provider. This is important. How is this prevented? You can lower your risk of developing community-acquired pneumonia by: ? Getting the pneumonia vaccine. There are different types and schedules of pneumonia vaccines. Ask your health care provider which option is best for you. Consider getting the pneumonia vaccine if: ? You are older than 65 years of age. ? You are 19???65 years of age and are receiving cancer treatment, have chronic lung disease, or haveother medical conditions that affect your immune system. Ask your health care provider if this applies to you. ? Getting your influenza vaccine every year. Ask your health care provider which type of vaccine is best for you. ? Getting regular dental checkups. ? Washing your hands often with soap and water for at least 20 seconds. If soap and water are not available, use hand servicenow administrator. Contact a health care provider if you have: ? A fever. ? Trouble sleeping because you cannot control your cough with cough medicine. Get help right away if: ? Your shortness of breath becomes worse. ? Your chest pain increases. ? Your sickness becomes worse, especially if you are an older adult or have a weak immune system. ? You cough up blood. These symptoms may represent a serious problem that is an emergency. Do not wait to see if the symptoms will go away. Get medical help right away. Call your local emergency services (911 in the [place] Do not drive yourself to the hospital. Summary ? Pneumonia is an infection of the lungs. ? Community-acquired pneumonia develops in people who have not been in the hospital. It can be causedby bacteria, viruses, or fungi. ? This condition may be treated with antibiotics or antiviral medicines. ? Severe pneumonia may require a hospital stay and treatment to help with breathing. This information is not intended to replace advice given to you by your health care provider. Make sure you discuss any questions you have with your health care provider. Document Revised: 02/10/2020 Document Reviewed: 02/10/2020 [employer] [facility] Patient Education ?? 2022 [employer]. Tests Performed Radiology CT Chest w/o Contrast 04/19/2023 06:52 EST XR Chest 1 View 04/19/2023 06:23 EST Medications and Immunizations Administered Given amoxicillin-clavulanate 875 mg-125 mg oral tablet, 1 tab, Oral doxycycline, 100 mg, Oral ipratropium-albuterol 0.5 mg-2.5 mg/3 mL inhalation solution, 3 mL, Nebulized Inhalation Lab Test Name Test Result Date/Time WBC 5.0 K/mcL 04/19/2023 05:08 EST RBC 4.65 Million/mcL 04/19/2023 05:08 EST Hgb 14.4 g/dL 04/19/2023 05:08 EST Hct 41.6 % 04/19/2023 05:08 EST MCV 89.5 fL 04/19/2023 05:08 EST MCH 30.9 pg 04/19/2023 05:08 EST MCHC 34.5 g/dL 04/19/2023 05:08 EST RDW-CV 13.9 % 04/19/2023 05:08 EST Platelets 181 K/mcL 04/19/2023 05:08 EST MPV 8.1 fL 04/19/2023 05:08 EST Neutro Auto 75.8 % 04/19/2023 05:08 EST Lymph Auto 13.5 % 04/19/2023 05:08 EST [place] Auto 8.2 % 04/19/2023 05:08 EST Eos, Auto 1.90 % 04/19/2023 05:08 EST Basophil Auto 0.6 % 04/19/2023 05:08 EST Neutro Absolute 3.8 K/mcL 04/19/2023 05:08 EST Lymph Absolute 0.7 K/mcL 04/19/2023 05:08 EST [place] Absolute 0.4 K/mcL 04/19/2023 05:08 EST Eos Absolute 0.1 K/mcL 04/19/2023 05:08 EST Baso Absolute 0.0 K/mcL 04/19/2023 05:08 EST ESR, Westergren 53 mm/hr 04/19/2023 05:08 EST D Dimer, (Quant.) 400 ng/mL 04/19/2023 05:08 EST Sodium Level 136 mmol/L 04/19/2023 05:08 EST Potassium Level 3.6 mmol/L 04/19/2023 05:08 EST Chloride Level 103 mmol/L 04/19/2023 05:08 EST CO2 23 mmol/L 04/19/2023 05:08 EST Alk Phos 61 IntlUnit/L 04/19/2023 05:08 EST AST 17 IntlUnit/L 04/19/2023 05:08 EST ALT 21 IntlUnit/L 04/19/2023 05:08 EST BUN 11 mg/dL 04/19/2023 05:08 EST Glucose Level 252 mg/dL 04/19/2023 05:08 EST Creatinine Level 1.00 mg/dL 04/19/2023 05:08 EST BUN/Creat Ratio 11.0 04/19/2023 05:08 EST eGFR CKD-EPI 89 mL/min/1.73 m2 04/19/2023 05:08 EST Calcium Level 9.0 mg/dL 04/19/2023 05:08 EST Protein Total 6.7 g/dL 04/19/2023 05:08 EST Albumin Level 3.9 g/dL 04/19/2023 05:08 EST Globulin 2.8 g/dL 04/19/2023 05:08 EST A/G Ratio 1.4 g/dL 04/19/2023 05:08 EST Bilirubin Total 0.8 mg/dL 04/19/2023 05:08 EST Anion Gap 10.0 04/19/2023 05:08 EST Osmolality 280 mOsm/kg 04/19/2023 05:08 EST Troponin-I HS 2 ng/L 04/19/2023 05:08 EST Adenovirus RespP-BFire Not Detected BF 04/19/2023 05:43 EST Bordetella parapertussis RespP-BFire Not Detect-BioFire 04/19/2023 05:43 EST Bordetella pertussis RespP-BFire Not Detect-BioFire 04/19/2023 05:43 EST Chlamydophila pneumoniae RespP-BFire Not Detect-BioFire 04/19/2023 05:43 EST Coronavirus 229E (Not COVID-19) RP-BFire Not Detect-BioFire 04/19/2023 05:43 EST Coronavirus HKU1 (Not COVID-19) RP-BFire Not Detect-BioFire 04/19/2023 05:43 EST Coronavirus NL63 (Not COVID-19) RP-BFire Not Detect-BioFire 04/19/2023 05:43 EST Coronavirus OC43 (Not COVID-19) RP-BFire Not Detect-BioFire 04/19/2023 05:43 EST SARS-CoV-2 (COVID-19) RP-BFire Not Detect-BioFire 04/19/2023 05:43 EST Human Metapneumonovirus RespP-BFire Not Detect-BioFire 04/19/2023 05:43 EST Human Rhinovirus/Enterovirus RespP-BFir Not Detect-BioFire 04/19/2023 05:43 EST Influenza A RespP-BFire Not Detect-BioFire 04/19/2023 05:43 EST Influenza B RespP-BFire Not Detect-BioFire 04/19/2023 05:43 EST Mycomplasma pneumoniae RespP-BFire Not Detect-BioFire 04/19/2023 05:43 EST Parainfluenza Virus 1 RespP-BFire Not Detect-BioFire 04/19/2023 05:43 EST Parainfluenza Virus 2 RespP-BFire Not Detect-BioFire 04/19/2023 05:43 EST Parainfluenza Virus 3 RespP-BFire Not Detect-BioFire 04/19/2023 05:43 EST Parainfluenza Virus 4 RespP-BFire Not Detect-BioFire 04/19/2023 05:43 EST Respiratory Syncytial Virus RespP-BFire Not Detect-BioFire 04/19/2023 05:43 EST 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 Unknown 04/19/2023 05:43 EST Symptomatic as defined by CDC? Unknown 04/19/2023 05:43 EST Hospitalized due to COVID-19? Unknown 04/19/2023 05:43 EST In ICU? Unknown 04/19/2023 05:43 EST Group care resident? Unknown 04/19/2023 05:43 EST status? 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 [address] [place] [id number]
[2023-05-29] MEDS: Levalbuterol HFA 15 GM INH 4 PUFF IH (16:18)
[2023-05-29] MEDS: Inhaler, Assist Device 1 EACH MC (16:18)
--- NOTE | 2023-06-01 09:29 | W.PFT ---
Date of service: 05/29/23 Time of Service: 14:48 Pulmonary Function Test Result Indications: Pneumonia Interpretation Spirometry: There is no airflow limitation. No bronchodilator response. The FVC is low. Lung Volumes: There is mild restrictive lung disease Diffusion Capacity: Unable to perform DLCO due to technical issues Airway Pressure: Normal airways resistance Impression Mild restrictive lung disease. DLCO unable to be performed. This could be due to ILD or neuromuscular weakness. Recommend a DLCO and muscle pressure testing. Clinical Correlation therefore is recommended.
== END 2023-05-29 05:04 | disposition home or self-care (01) ==
LOC: RT 05:04
PROVIDERS: PCP Physician Assistant Medical; Visit Provider Physician Assistant Medical
DX: J18.9 Pneumonia, unspecified organism (principal); R05.3 Chronic cough
CPT/HCPCS: 94060; 94726

== ENCOUNTER 2023-06-07 04:16 | Outpatient (CLI) | payer OTHER, SELFPAY ==
--- NOTE | 2023-06-07 10:08 | W.PFT ---
Date of service: 06/07/23 Time of Service: 08:00 Pulmonary Function Test Result Indications: Chronic cough Interpretation Diffusion Capacity: Normal diffusion. Impression Normal diffusion. When adding this to recent prior PFT, the mild restrictive disease may be due to neuromuscular weakness. Recommend muscle pressure testing for further evaluation if clinically reasonable. Clinical Correlation therefore is recommended.
== END 2023-06-07 04:17 | disposition home or self-care (01) ==
LOC: RT 04:16
PROVIDERS: PCP Physician Assistant Medical; Visit Provider Physician Assistant Medical
DX: R05.3 Chronic cough (principal); R94.2 Abnormal results of pulmonary function studies
CPT/HCPCS: 94729

== ENCOUNTER 2023-06-19 11:32 | Outpatient (CLI) | payer OTHER, SELFPAY ==
[2023-06-20 08:20] LABS: IgE 9 IU/mL (<158)
[2023-06-20 08:57] LABS: IgA 96 mg/dL (85-499); IgG 993 mg/dL (610-1616); IgM 87 mg/dL (35-242)
== END 2023-06-19 11:33 | disposition home or self-care (01) ==
LOC: LBO 11:32
PROVIDERS: PCP Physician Assistant Medical; Visit Provider Student in an Organized Health Care Education/Training Program
DX: B99.9 Unspecified infectious disease (principal)
CPT/HCPCS: 36415; 82784; 82785; 82787

== ENCOUNTER 2023-06-29 02:58 | Outpatient (CLI) | payer OTHER, SELFPAY ==
[2023-06-29] MEDS: Methacholine 100 MG VIAL IH (17:04)
[2023-06-29] MEDS: Inhaler, Assist Device 1 EACH MC (17:05)
[2023-06-29] MEDS: Albuterol HFA 18 GM 200 PUFF INH IH (17:05)
--- NOTE | 2023-07-02 11:05 | W.PFT ---
Date of service: 06/29/23 Time of Service: 02:54 Pulmonary Function Test Result Indications: Cough Interpretation Spirometry: There is no baseline airflow limitation. There is a 12% decrease in FEV1 with 16mg/mL methacholine. MIP and MEP are decreased. Impression Negative methacholine challenge. Muscle pressures are decreased with restrictive spirometry, indicative of neuromuscular weakness. Clinical Correlation therefore is recommended.
== END 2023-06-29 02:59 | disposition home or self-care (01) ==
LOC: RT 02:58
PROVIDERS: PCP Physician Assistant Medical; Visit Provider Student in an Organized Health Care Education/Training Program
DX: R05.9 Cough, unspecified (principal); R94.2 Abnormal results of pulmonary function studies
CPT/HCPCS: 94060; 94070; J7674

== ENCOUNTER 2023-09-10 13:17 | Emergency (ER) | payer OTHER, SELFPAY ==
[2023-09-10] VITALS (22 sets, daily range): BP systolic 117–158; BP diastolic 72–97; PULSE 55–78; RESP 12–20; TEMP 36.6; O2SAT 94–98
--- NOTE | 2023-09-10 15:29 | W.ED.GENAD ---
Discharge Plan Disposition Patient Disposition: Home Condition: Stable Discharge Details Clinical Impression: Insomnia, Excessive daytime sleepiness Primary Care Provider: Timi Hendricks ED Provider: Santos Bright Home Meds and New Rx's Prescriptions: Continued albuterol sulfate 90 mcg/actuation HFA aerosol inhaler 2 puff inhalation .Q4-6H PRN losartan 25 mg tablet 25 mg PO DAILY Discharge Instructions Instructions: Zolpidem (By mouth), Insomnia (ED) Additional Instructions: You were seen in the emergency department for your insomnia and excessive daytime sleepiness. Your laboratory workup is benign, your thyroid hormone is normal, cardiac workup is negative, electrolytes are normal, CT of the head is negative for any acute abnormality. I suspect you have insomnia and may need to see your primary care provider about starting a sleep aid medication like Ambien, I am providing you for 5 mg tablets of Ambien. Please take 1 before bed, you may repeat the dose if you do not fall asleep but do not try to stay up on this medication as it can have significant inebriating effects. Please return to the emergency department for any emergent concerns. Referrals: Timi Hendricks PA [Primary Care Provider] - HPI General Date/Time Provider Initiated Documentation: 09/10/23 15:27. HPI Narrative: [ ] year-old [ ] presents to ED today by [ ] with a chief complaint of [ ] with onset [ ]. Quality described as [ ], [ ] radiation to [ ]. Severity is described as [ ]/10. Palliating factors include [ ]. Provoking factors include [ ]. Events leading up to the incident/Associated Symptoms: [ ]. Patient [ ] anticoagulated. Related Data Home Medications Medication Instructions Recorded Confirmed losartan 25 mg tablet 25 mg PO DAILY 12/24/19 09/10/23 albuterol sulfate 90 mcg/actuation 2 puff inhalation .Q4-6H PRN 06/11/23 09/10/23 aerosol inhaler Allergies Allergy/AdvReac Type Severity Reaction Status Date / Time lisinopril AdvReac Mild cough Verified 09/10/23 14:01 General Stated Complaint: GenMedical JORDIN: 3 Review of Systems All systems reviewed & are unremarkable except as noted in HPI and below Exam Narrative Exam Narrative: GENERAL APPEARANCE: Well-nourished, non-toxic, awake and alert, atraumatic, no acute distress. SKIN: Warm, pink, dry, intact, without rashes/lesions/ulcerations. HEAD: Normocephalic, atraumatic, normal hair distribution for gender/age. EYES: Pupils PERRLA, EOMs intact without nystagmus, normal conjunctiva, no exudates on lids/lashes. ENT: Nares patent, no circumoral cyanosis, no facial swelling NECK: Supple, trachea midline, painless cervical ROM, no nuchal rigidity. LUNGS/CHEST: Lungs CTA bilaterally, non-labored respirations, normal A/P diameter, symmetrical expansion, no chest wall deformity HEART (CV/PV): Regular rate and rhythm without murmur, no peripheral edema, no JVD. ABDOMEN: Soft, non-distended, no guarding. MSK: Normal ROM, no swelling/deformity to bilateral UEs or LEs, moving all extremities without weakness, no cyanosis, spine midline without tenderness, normal curvature. NEURO: Mental Status AAOx4 - alert to person, place, time, events No facial droop, no forehead involvement. Motor: No focal weakness - strength 5/5 in bilateral UEs and LEs, proximal and distal, symmetric. Sensory: sensation intact to light touch globally. Gait normal: patient ambulated without ataxia into ED room. PSYCH: euthymic, cooperative, pleasant, appropriate speech Course Vital Signs Vital signs: Vital Signs Temperature 36.6 C 09/10/23 14:02 Pulse 69 09/10/23 14:02 Respiratory Rate 16 09/10/23 14:02 Blood Pressure 158/86 H 09/10/23 14:02 Pulse Oximetry 98 09/10/23 14:02 Temperature 36.6 C 09/10/23 14:02 Temperature Source Temporal Artery Scan 09/10/23 14:02 Pulse 69 09/10/23 14:02 Respiratory Rate 16 09/10/23 14:02 Respiratory Effort Normal, Non-Labored 09/10/23 14:05 Blood Pressure 158/86 H 09/10/23 14:02 Blood Pressure Position Sitting 09/10/23 14:02 Pulse Oximetry 98 09/10/23 14:02 Oxygen Delivery Method Room Air 09/10/23 14:02 Oxygen Flow Rate 0 09/10/23 14:02 Pain Level 5 09/10/23 14:02 Medical Decision Making This dictation utilizes [id number] dictation software and may contain unedited grammatical errors. 53 y/o M presents to ED today with a chief complaint of insomnia and excessive daytime sleepiness for 3 weeks. Patient has been unable to sleep, and is falling asleep frequently in the day. Denies numbness/tingling, denies fevers, denies neck stiffness, endorses mild headaches, denies pulsatile tinnitus. Patient has tried benadryl, melatonin, tylenol PM. Patients' medical history: Lung consolidation, history of restrictive lung disease, bronchiectasis, pulmonary fibrosis, prediabetes, hypertension, stress. 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 Pertinent exam findings / vital signs include neuro intact, benign cardiopulmonary exam, benign abdomen, nontoxic vitals. Differential / pathologies of concern include psychosomatic insomnia, brain mass, electrolyte abnormality, infection, UTI. Diagnostic studies of: -CBC, CMP, UA, TSH, ammonia, EKG, CT Head wo Contrast. -CBC shows mild leukopenia, no other abnormality -CMP benign -Ammonia negative -CRP mildly elevated, nonspecific -TSH within normal limits -CT head shows no acute abnormality -EKG shows sinus rhythm at 79 bpm with P waves followed by narrow complex QRS, questionable left axis deviation, good R wave progression, no ST depressions or elevations, no T wave abnormalities, no QT prolongation Interventions of: -Outpatient trial of zolpidem. ED Course/Assessment/Plan: Counseled the patient on no emergent findings on his laboratory workup or imaging, suspect insomnia and recommend trial of zolpidem provided 4 tablets to go. Counseled the patient that if this does not work he should seek evaluation with his primary care provider. Return criteria for any fevers, neck stiffness, confusion, alteration from baseline. Findings not consistent with stroke, brain mass, electrolyte abnormality, infection, meningismus. Disposition of Insomnia, Excessive Daytime Sleepiness. Patient verbalized understanding of the plan and return to ED criteria and engaged in shared decision making. Medical Records Medical records reviewed: Yes I reviewed the patient's medical records. Imaging Data Radiologic Study: Attestation: I personally reviewed and interpreted this imaging study as follows: Imaging: CT Scan Radiologist's impression: Exam: CT Head Without Contrast Exam date and time: 09/10/2023 6:30 PM Age: 53 years old Clinical indication: Dizziness; Patient HX: Excessive drowsiness, headaches TECHNIQUE: Imaging protocol: Computed tomography of the head without contrast. Radiation optimization: All CT scans at this facility use at least one of these dose optimization techniques: automated exposure control; mA and/or kV adjustment per patient size (includes targeted exams where dose is matched to clinical indication); or iterative reconstruction. COMPARISON: No relevant prior studies available. FINDINGS: Brain: Mild volume loss. No hemorrhage. Unremarkable white matter. No mass effect. Cerebral ventricles: No ventriculomegaly. Paranasal sinuses: Minimal mucosal thickening. No fluid levels. Mastoid air cells: Visualized mastoid air cells are well aerated. Bones/joints: Unremarkable. No acute fracture. Soft tissues: Unremarkable. IMPRESSION: No acute intracranial abnormality. Lab Data Lab results reviewed: Yes I reviewed the patient's lab results. Labs: Laboratory Tests Range/Units 09/10/23 09/10/23 18:10 18:17 WBC (4.4-10.8) 10^3/uL 3.20 L RBC (4.36-5.78) 10^6/uL 5.31 Hgb (13.5-17.5) g/dL 16.0 Hct (40.0-50.0) % 47.1 MCV (80-95) fL 89 MCH (27.0-33.0) pg 30.1 MCHC (32.0-36.0) % 34.0 RDW (11.8-14.1) % 13.5 Plt Count (130-400) 10^3/uL 192 MPV (8.0-11.0) fL 10.3 Immature Gran % 0.3 Neutrophils % 57.2 Lymphocytes % 30.3 Monocytes % 7.2 Eosinophils % 4.1 Basophils % 0.9 Nucleated RBC % (0.0-0.3) % 0.0 Absolute Neutrophils (1.2-6.7) 10^3/uL 1.83 Absolute Lymphocytes (1.2-3.4) 10^3/uL 0.97 L Absolute Monocytes (0.1-0.8) 10^3/uL 0.23 Absolute Eosinophils (0.0-0.7) 10^3/uL 0.13 Absolute Basophils (0.0-0.2) 10^3/uL 0.03 ESR (0-20) mm/hr 12 Sodium (136-145) mmol/L 140 Potassium (3.5-5.1) mmol/L 4.1 Chloride (98-107) mmol/L 104 Carbon Dioxide (21.0-32.0) mmol/L 29.0 Anion Gap (3-11) mmol/L 7.0 BUN (7-18) mg/dL 15 Creatinine (0.70-1.30) mg/dL 1.1 Est GFR (CKD-EPI 2020) (mL/min/1.73m2) 79.28 Glucose (74-106) mg/dL 165 H Calcium (8.5-10.1) mg/dL 9.0 Magnesium (1.8-2.4) mg/dL 2.4 Total Bilirubin (0.2-1.0) mg/dL 0.5 AST (15-37) U/L 25 ALT (16-63) U/L 42 Alkaline Phosphatase (46-116) U/L 97 Ammonia (11-32) umol/L < 10 L C-Reactive Protein (<or=0.5) mg/dL 0.72 H Total Protein (6.4-8.2) g/dL 8.0 Albumin (3.4-5.0) g/dL 4.2 TSH (0.36-3.74) uIU/mL 0.52 Urine Color (Yellow) Yellow Urine Clarity (Clear) Clear Urine pH (5-8) 6.0 Ur Specific [place] (1.005-1.025) 1.015 Urine Protein (Neg-Trace) mg/dL Negative Urine Ketones (Negative) mg/dL Negative Urine Blood (Negative) Negative Urine Nitrite (Negative) Negative Urine Bilirubin (Negative) Negative Urine Urobilinogen (Up to 0.2) mg/dL 1.0 H Ur Leukocyte Esterase (Negative) Negative Urine Glucose (Negative) mg/dL 100 H Quality:[facility] Health Related Social Needs: No Data to Display PFSH All Active Problems (Updated 09/10/23 @ 19:04 by BABAR Verma) Excessive daytime sleepiness (Acute) Insomnia (Acute) Restrictive lung disease (Acute) Bronchiectasis (Acute) Pulmonary fibrosis (Acute) Recurrent infections (Acute) Cough (Acute) Pain in knee joint (Acute) Prediabetes (Acute) Dizziness and giddiness (Acute) Nontraumatic rotator cuff tear (Acute) Joint pain (Acute) Lower back pain (Acute) Umbilical hernia (Acute) Essential hypertension (Acute) Stress (Acute) Medical History (Updated 09/10/23 @ 19:04 by BABAR Verma) Lung consolidation History of COVID-19 Surgical History (Updated 06/11/23 @ 12:02 by Juli Davila) H/O umbilical hernia repair Family History (Updated 06/19/23 @ 10:08 by Juli Davila) Mother Stroke Hypertension Lung disease Father , 56 Cancer metastatic Aunt Cancer Uncle Cancer Other Alcohol use disorder Coronary heart disease Hyperlipidemia Social History (Updated 06/11/23 @ 12:01 by Juli Davila) Smoking/Tobacco Use Status: Former Tobacco Use Tobacco: How many years used: 41 Smokeless tobacco user: chewing tobacco Smoking risk assessment performed?: Yes Alcohol Intake: never Drug use: Never Substance use type: does not use Housing: house Do you feel safe at home: Yes Do you feel safe in your relationship?: Yes
--- NOTE | 2023-09-10 15:45 | RT.EKG_ITS ---
APPROVED REPORT Exam: Resting ECG Reason for Exam: dizziness Patient Location: E HR:79 bpm ECG Measurements Heart Rate 79 AXIS [place] 156 P 24 QRSd 82 QRS 5 QT 389 T 31 QTc 447 Conclusion Sinus rhythm...normal P axis, V-rate 60- 99 sinus rhythm, left axis, normal intervals, non ischemic
[2023-09-10 18:28] LABS: ESR 12 mm/hr (0-20)
[2023-09-10 18:31] LABS: Abs Immature Grans 0.01 10^3/uL (0.0-0.06); Absolute Basophil Count 0.03 10^3/uL (0.0-0.2); Absolute Eosinophil Count 0.13 10^3/uL (0.0-0.7); Absolute Lymphocyte Count 0.97 10^3/uL (1.2-3.4); Absolute Monocyte Count 0.23 10^3/uL (0.1-0.8); Absolute Neutrophil Count 1.83 10^3/uL (1.2-6.7); Basophils % 0.9; Eosinophils % 4.1; HCT 47.1 % (40.0-50.0); Immature Grans % 0.3; Lymphocytes % 30.3; MCH 30.1 pg (27.0-33.0); MCV 89 fL (80-95); MPV 10.3 fL (8.0-11.0); Monocytes % 7.2; Neutrophils % 57.2; Platelet Count 192 10^3/uL (130-400); RBC 5.31 10^6/uL (4.36-5.78); RDW 13.5 % (11.8-14.1); RDW-SD 43.8 fL
[2023-09-10 18:33] LABS: Bilirubin Negative (Negative); Blood Negative (Negative); Clarity Clear (Clear); Glucose 100 mg/dL (Negative); Ketones Negative (Negative); Leukocyte Esterase Negative (Negative); Nitrite Negative (Negative); Specific Gravity 1.015 (1.005-1.025)
--- NOTE | 2023-09-10 18:38 | DI.CT_ITS ---
Exam(s) CT HEAD WO EXAM: CT HEAD WO CLINICAL HISTORY: excessive drowsiness, headaches. TECHNIQUE: Imaging Protocol: Axial computed tomography images with coronal and sagittal reformatted images were created and reviewed COMPARISON: No exams were available for comparison FINDINGS: Ventricles and Extra axial spaces: Normal in size and morphology for the patient's age. Hemorrhage: None. Cerebral parenchyma: No evidence of acute infarct or mass. Midline shift: None. Brainstem/Cerebellum: Normal. Calvarium: Normal. Visualized Paranasal sinuses:Mild mucosal thickening. Mastoids: Clear. Soft Tissues: Unremarkable. ORBITS: Unremarkable. PITUITARY: Not enlarged. IMPRESSION: No acute intracranial process. RADIATION DOSE DELIVERED: 784.25mGy.cm Total DLP DATA REPOSITORY: All CT scans at this facility are submitted to the National Radiology Data Registry (NRDR) Dose Index Registry (DIR) with the [employer] (A[employer]). RADIATION OPTIMIZATION: All CT scans at this facility use at least one of these dose optimization te chniques: automated exposure control; mA and/or kV adjustment per patient size (includes targeted exa ms where dose is matched to clinical indication); or iterative reconstruction.
[2023-09-10 18:53] LABS: Ammonia < 10 umol/L (11-32)
[2023-09-10 18:54] LABS: ALT 42 U/L (16-63); AST 25 U/L (15-37); Albumin 4.2 g/dL (3.4-5.0); Alkaline Phosphatase 97 U/L (46-116); BUN 15 mg/dL (7-18); Bilirubin, Total 0.5 mg/dL (0.2-1.0); C-Reactive Protein 0.72 mg/dL (<or=0.5); CREATININE 1.1 mg/dL (0.70-1.30); Chloride 104 mmol/L (98-107); Estimated GFR 79.28 (mL/min/1.73m2); Glucose 165 mg/dL (74-106); Magnesium 2.4 mg/dL (1.8-2.4); Potassium 4.1 mmol/L (3.5-5.1); Sodium 140 mmol/L (136-145); TSH (W/Ref FT4) 0.52 uIU/mL (0.36-3.74)
[2023-09-10] MEDS: Zolpidem 5 MG TAB PO (20:03)
--- NOTE | 2023-09-11 00:14 | DI.VRAD_ITS ---
PROCEDURE INFORMATION: Exam: CT Head Without Contrast Exam date and time: 09/10/2023 6:30 PM Age: 53 years old Clinical indication: Dizziness; Patient HX: Excessive drowsiness, headaches TECHNIQUE: Imaging protocol: Computed tomography of the head without contrast. Radiation optimization: All CT scans at this facility use at least one of these dose optimization techniques: automated exposure control; mA and/or kV adjustment per patient size (includes targeted exams where dose is matched to clinical indication); or iterative reconstruction. COMPARISON: No relevant prior studies available. FINDINGS: Brain: Mild volume loss. No hemorrhage. Unremarkable white matter. No mass effect. Cerebral ventricles: No ventriculomegaly. Paranasal sinuses: Minimal mucosal thickening. No fluid levels. Mastoid air cells: Visualized mastoid air cells are well aerated. Bones/joints: Unremarkable. No acute fracture. Soft tissues: Unremarkable. IMPRESSION: No acute intracranial abnormality. Dictated and Authenticated by: Bradly Kelley MD. Ordering:LUNA Graham MD
[2023-09-12 09:11] LABS: Lyme Ab w Rflx to Lyme Confirm Positive (Negative)
[2023-09-12 11:09] LABS: Lyme IgG Ab Negative (Negative); Lyme IgM Ab Positive (Negative)
[2023-09-13 13:43] LABS: Anaplasma phagocytophilum Negative (Negative); B. miyamotoi PCR Negative (Negative); Babesia divergens/MO-1 Negative (Negative); Babesia duncani Negative (Negative); Babesia microti Negative (Negative); Ehrlichia chaffeensis Negative (Negative); Ehrlichia ewingii/canis Negative (Negative); Ehrlichia muris eauclairensis Negative (Negative)
== END 2023-09-10 20:06 | disposition home or self-care (01) ==
PROVIDERS: Emergency Provider Physician Assistant; PCP Physician Assistant Medical
DX: R42 Dizziness and giddiness (principal); G47.00 Insomnia, unspecified
CPT/HCPCS: 36415; 80053; 85652; 86617; 87798; 93005; 99283; 70450; 81003; 82140; 83735; 84443; 85025; 86140; 86618; 93010

== ENCOUNTER 2024-04-15 17:15 | Outpatient (REF) | payer OTHER, SELFPAY ==
[2024-04-17 10:27] LABS: Lyme Ab w Rflx to Lyme Confirm Negative (Negative)
[2024-04-18 23:44] LABS: Anaplasma phagocytophilum Negative (Negative); B. miyamotoi PCR Negative (Negative); Babesia divergens/MO-1 Negative (Negative); Babesia duncani Negative (Negative); Babesia microti Negative (Negative); Ehrlichia chaffeensis Negative (Negative); Ehrlichia ewingii/canis Negative (Negative); Ehrlichia muris eauclairensis Negative (Negative)
== END 2024-04-15 17:16 | disposition home or self-care (01) ==
LOC: NCHCN 17:15
PROVIDERS: PCP Physician Assistant Medical; Visit Provider Physician Assistant Medical
DX: A69.20 Lyme disease, unspecified (principal)
CPT/HCPCS: 87798; 86618

== ENCOUNTER 2024-06-24 07:38 | Emergency (ER) | payer OTHER, SELFPAY ==
--- NOTE | 2024-06-24 07:30 | RT.EKG_ITS ---
APPROVED REPORT Exam: Resting ECG Reason for Exam: SOB Patient Location: E HR:75 bpm ECG Measurements Heart Rate 75 AXIS SC 172 P 31 QRSd 89 QRS -9 QT 391 T 27 QTc 436 Conclusion Sinus rhythm...normal P axis, V-rate 60- 99
[2024-06-24 07:39] VITALS: BP 151/87; PULSE 76; RESP 22; TEMP 36.6; O2SAT 96
[2024-06-24 07:44] VITALS: BP 151/87; PULSE 76; RESP 22; TEMP 36.6; O2SAT 96
--- NOTE | 2024-06-24 07:53 | ED.GENADUL_ITS ---
Discharge Plan Disposition Patient Disposition: Home Condition: Stable Discharge Details Clinical Impression: Acute otitis media, left, CAP (community acquired pneumonia) Primary Care Provider: Timi Hendricks ED Provider: Cricket Velarde Home Meds and New Rx's Prescriptions: New azithromycin [Zithromax Z-Naveed] 250 mg tablet See Rx Instructions .ROUTE .COMPLEX Qty: 6 0RF Rx Instructions: For 250 mg dose pack: take 500 mg today (day 1), then 250 mg for 4 days (days 2-5) prednisone 20 mg tablet 60 mg PO DAILY 5 Days Qty: 15 0RF amoxicillin-pot clavulanate 875-125 mg tablet 1 tab PO BID Qty: 14 0RF Continued albuterol sulfate 2.5 mg /3 mL (0.083 %) solution for nebulization 2.5 mg inhalation QID PRN (Reason: shortness of breath or wheezing) Qty: 180 0RF albuterol sulfate 90 mcg/actuation HFA aerosol inhaler 2 puff inhalation .Q4-6H PRN losartan 25 mg tablet 25 mg PO DAILY No Action prednisone 20 mg tablet 40 mg PO DAILY Qty: 10 0RF Rx Instructions: Take 2 tablets once a day for 5 days. Discharge Instructions Additional Instructions: You are being treated for a lung infection and also an ear infection. If you are not improving this week follow-up with your primary care provider. If you feel more ill or have severe worsening shortness of breath return to the emergency department for reevaluation. HPI General Date/Time Provider Initiated Documentation: 06/24/24 07:42 . Limitations to Documentation: no limitations . Information obtained by: patient . History of Present Illness 54 year old M presents to the emergency department with the chief complaint of cough, left ear pain, sinus congestion, described as moderate, Patient started experiencing this week(s) (1) and it has been constant. No relieving factors improve symptom(s), No exacerbating factors reported . Patient notes denies chest pain, fever/chills and shortness of breath. Patient did receive the following treatments prior to arrival, none Related Data Home Medications ?Medication ?Instructions ?Recorded ?Confirmed losartan 25 mg tablet 25 mg PO DAILY 12/24/19 03/20/24 albuterol sulfate 90 mcg/actuation 2 puff inhalation .Q4-6H PRN 06/11/23 09/10/23 aerosol inhaler albuterol sulfate 2.5 mg/3 mL 2.5 mg (3 mL) inhalation QID PRN 03/20/24 03/20/24 (0.083 %) solution for nebulization shortness of breath or wheezing #180 mL prednisone 20 mg tablet 40 mg (2 x 20 mg) PO DAILY #10 tabs 03/20/24 03/20/24 amoxicillin 875 mg-potassium 1 tab PO BID #14 tabs 06/24/24 clavulanate 125 mg tablet azithromycin 250 mg tablet See Rx Instructions PO .COMPLEX #6 06/24/24 (Zithromax Z-Naveed) tabs prednisone 20 mg tablet 60 mg (3 x 20 mg) PO DAILY 5 days 06/24/24 #15 tabs Previous Rx's ?Medication ?Instructions ?Recorded albuterol sulfate 2.5 mg/3 mL 2.5 mg (3 mL) inhalation QID PRN 03/20/24 (0.083 %) solution for nebulization shortness of breath or wheezing #180 mL prednisone 20 mg tablet 40 mg (2 x 20 mg) PO DAILY #10 tabs 03/20/24 amoxicillin 875 mg-potassium 1 tab PO BID #14 tabs 06/24/24 clavulanate 125 mg tablet azithromycin 250 mg tablet See Rx Instructions PO .COMPLEX #6 06/24/24 (Zithromax Z-Naveed) tabs prednisone 20 mg tablet 60 mg (3 x 20 mg) PO DAILY 5 days 06/24/24 #15 tabs Allergies Allergy/AdvReac Type Severity Reaction Status Date / Time lisinopril AdvReac Mild cough Verified 06/24/24 07:43 General Stated Complaint: RespSymp JORDIN: 3 Review of Systems All systems reviewed & are unremarkable except as noted in HPI and below Constitutional Constitutional: Denies chills, Denies fever(s) and Denies weakness ENT Ears, Nose, Mouth, and Throat: Reports otalgia Cardiovascular Cardiovascular: Denies chest pain and Denies dyspnea Respiratory Respiratory: Reports cough and Denies dyspnea Gastrointestinal Gastrointestinal: Denies abdominal pain, Denies nausea and Denies vomiting Neurologic Neurologic: Denies weakness Psychiatric Psychiatric: Denies depression Exam Const General: no acute distress Orientation: alert HENMT Head: normal to inspection Ears: external ears normal, TM normal on the right, left TM abnormal, EAC's normal and mastoids normal General nose exam: external nose normal Mouth: moist mucous membranes Eyes General: appearance normal, both eyes and all related structures Neck Neck: normal visual inspection Resp Effort & Inspection: normal respiratory effort and able to speak in complete sentences Auscultation: clear to auscultation bilaterally Cardio Jugular venous pressure: no JVD Rate: regular rate Skin General skin exam: no rashes or lesions noted Neuro General: patient alert and patient oriented x3 Extrem General: normal to inspection Psych Mental Status: mental status grossly normal Course Vital Signs Vital signs: Vital Signs Temperature 36.6 C 06/24/24 07:39 Pulse 76 06/24/24 07:39 Respiratory Rate 22 06/24/24 07:39 Blood Pressure 151/87 H 06/24/24 07:39 Pulse Oximetry 96 06/24/24 07:39 Temperature 36.6 C 06/24/24 07:44 Temperature Source Temporal Artery Scan 06/24/24 07:44 Pulse 76 06/24/24 07:44 Respiratory Rate 22 06/24/24 07:44 Respiratory Effort Normal 06/24/24 07:52 Respiratory Depth Normal 06/24/24 07:52 Blood Pressure 151/87 H 06/24/24 07:44 Pulse Oximetry 96 06/24/24 07:44 Medical Decision Making 54-year-old male with a history of bronchiectasis comes in with 1 week of sinus congestion, left ear pain and cough. He says that he tested positive for COVID last Sunday. He denies any high fevers, difficulty breathing, chest pain. He is well-appearing on exam in no distress. He is speaking in full sentences. His right TM is normal in appearance, his left TM is red and bulging. He also notes he had a week of sinus pressure and congestion. He has clear lung sounds, no JVD, no leg swelling. I suspect URI with otitis media versus sinusitis. I will order a chest x-ray to evaluate for infiltrates. Given his well appearance and stable vitals I do not feel any blood work is indicated. Patient stable, x-ray shows infiltrates bilaterally. He is not hypoxic and feels well. I am going to start him on Augmentin and azithromycin. I will also start him on a short course of prednisone. He will follow-up with his PCP if not improving and return precautions given. Differential Diagnosis Differential Diagnosis: otitis media, covid, sinusitis Lab Data Lab results reviewed: Yes I reviewed the patient's lab results. ECG Data Attestation: I personally reviewed and interpreted this ECG (s) as follows: Prior ECG tracings: available for review Interpretation: Sinus rhythm, rate of 75, [place] 172, no STEMI Quality:SDOH Health Related Social Needs: No Data to Display PFSH All Active Problems (Updated 06/24/24 @ 09:42 by Cricket Velarde MD) CAP (community acquired pneumonia) (Acute) Acute otitis media, left (Acute) Restrictive lung disease (Acute) Bronchiectasis (Acute) Pulmonary fibrosis (Acute) Recurrent infections (Acute) Cough (Acute) Pain in knee joint (Acute) Prediabetes (Acute) Dizziness and giddiness (Acute) Nontraumatic rotator cuff tear (Acute) Joint pain (Acute) Lower back pain (Acute) Umbilical hernia (Acute) Essential hypertension (Acute) Stress (Acute) Medical History (Updated 06/24/24 @ 09:42 by Cricket Velarde MD) Lung consolidation History of COVID-19 Surgical History (Updated 06/11/23 @ 12:02 by Juli Davila) H/O umbilical hernia repair Family History (Updated 06/19/23 @ 10:08 by Juli Davila) Mother Stroke Hypertension Lung disease Father , 56 Cancer metastatic Aunt Cancer Uncle Cancer Other Alcohol use disorder Coronary heart disease Hyperlipidemia Social History (Updated 06/11/23 @ 12:01 by Juli Davila) Smoking/Tobacco Use Status: Former Tobacco Use Tobacco: How many years used: 41 Smokeless tobacco user: chewing tobacco Smoking risk assessment performed?: Yes Alcohol Intake: never Drug use: Never Substance use type: does not use Housing: house Do you feel safe at home: Yes Do you feel safe in your relationship?: Yes
--- NOTE | 2024-06-24 08:11 | DI.RAD_ITS ---
Exam(s) XR CHEST 2V PA LATERAL EXAM: XR CHEST 2V PA LATERAL CLINICAL HISTORY: cough. TECHNIQUE: 2D digital imaging was performed. COMPARISON: CR XR CHEST SINGLE VIEW from 04/19/2023 FINDINGS: 2 views: Heart size is normal. The mediastinum is not widened. There is infiltrate in left lower lobe. Milder infiltrate right lower lobe. No pleural effusions. IMPRESSION: Bilateral infiltrates as described above. No pleural effusions evident DATA REPOSITORY: RADIATION DOSE DELIVERED:
[2024-06-24 09:57] VITALS: BP 149/89; PULSE 76; RESP 18; TEMP 36.4; O2SAT 97
== END 2024-06-24 09:59 | disposition home or self-care (01) ==
PROVIDERS: Emergency Provider Emergency Medicine; PCP Physician Assistant Medical
DX: J18.9 Pneumonia, unspecified organism (principal); H66.92 Otitis media, unspecified, left ear; I10 Essential (primary) hypertension; R06.02 Shortness of breath
CPT/HCPCS: 93005; 99284; 71046; 93010

== ENCOUNTER → 2025-05-11 15:44 | Outpatient (CLI) | payer OTHER, SELFPAY ==
--- NOTE | 2025-05-11 | DI.RAD_ITS ---
Exam(s) XR WRIST LT COMPLETE XR WRIST RT COMPLETE EXAM: XR WRIST RT COMPLETE CLINICAL HISTORY: RT WRIST PAIN,M25.531. TECHNIQUE: 2D digital imaging was performed. Three views of both wrists. COMPARISON: CR XR WRIST LT COMPLETE from 05/11/2025 FINDINGS: BONES: No acute fracture is present. No bony destructive lesion is seen. JOINTS: The carpal bones are normally aligned. There is minimal spurring at the distal lateral aspect of the navicular and 1st carpal metacarpal joints bilaterally. SOFT TISSUE: Normal. IMPRESSION: Minimal degenerative changes of the right wrist. DATA REPOSITORY: RADIATION DOSE DELIVERED:
== END ==
PROVIDERS: PCP Physician Assistant Medical; Visit Provider Physician Assistant Medical
DX: M25.532 Pain in left wrist (principal); M25.531 Pain in right wrist
CPT/HCPCS: 73110